=== PATIENT | male | born 1965 | race Hispanic/Latino ===

== ENCOUNTER 2016-11-26 23:27 | Inpatient (IN) | payer MEDICAID ==
[2016-11-27 00:21] LABS: Basophils % (Auto) 0.4 % (0.0-1.8); Eosinophils % (Auto) 0.2 % (0.0-4.3); Hematocrit 44.3 % (35.5-45.6); Hemoglobin 14.7 gm/dl (11.8-15.2); Mean Corpuscular HGB Conc 33 % (32-34); Mean Corpuscular Hemoglobin 32 pg (28-32); Mean Corpuscular Volume 95 fl (84-94); Platelet Count 339 K/mm3 (140-440); Red Blood Count 4.66 M/mm3 (3.65-5.03); Red Cell Distribution Width 13.1 % (13.2-15.2); White Blood Count 15.1 K/mm3 (4.5-11.0)
[2016-11-27 00:44] LABS: Alanine Aminotransferase 23 units/L (7-56); Albumin 3.9 g/dL (3.9-5); Albumin/Globulin Ratio 0.8 %; Alkaline Phosphatase 110 units/L (35-129); Anion Gap 22 mmol/L; BUN/Creatinine Ratio 16.36; Bilirubin,Total 0.6 mg/dL (0.1-1.2); Blood Urea Nitrogen 18 mg/dL (9-20); Calcium 9.1 mg/dL (8.4-10.2); Carbon Dioxide 27 mmol/L (22-30); Chloride 95.6 mmol/L (98-107); Glucose 96 mg/dL (75-100); Lipase 18 units/L (13-60); Potassium 4.6 mmol/L (3.6-5.0); Sodium 140 mmol/L (137-145); Total Protein 8.5 g/dL (6.3-8.2)
--- NOTE | 2016-11-27 06:20 | Emergency Department Report ---
ED Abdominal Pain HPI - General Chief Complaint: Abdominal Pain Stated Complaint: ZE/URINARY RETENTION Time Seen by Provider: 11/27/16 06:16 Source: patient Mode of arrival: Ambulatory Limitations: No Limitations - History of Present Illness Initial Comments: Treatment the patient's family member he doesn't have symptoms that are noted at triage such as abdominal pain. She states that this is entirely wrong. Also denies urinary retention and constipation. She states that he has come to the hospital because he has shaking which is worse than usual. He has a history of tremors and schizophrenia. He is not complaining of any pain. They think he might have had a fever at home but it was unmeasured. Patient himself was incapable of giving any coherent history. This is his baseline. He is found somewhat tremulous. He states that he cannot stop. He can follow simple commands. He'll tell me his name but not a whole lot else. He denies any abdominal discomfort. -: days(s) Severity scale (0 -10): 0 Consistency: constant (shaking) Improves With: nothing Worsens With: nothing Context: other (schizophrenia) Associated Symptoms: constipation (question history is variable) - Related Data Allergies Allergy/AdvReac Type Severity Reaction Status Date / Time No Known Allergies Allergy Verified 11/26/16 23:55 ED Review of Systems ROS: Stated complaint: ZE/URINARY RETENTION Other details as noted in HPI Comment: Unobtainable due to pts medical conditions ED Past Medical Hx - Past Medical History Previous Medical History?: Yes Additional medical history: tremors - Surgical History Past Surgical History?: No - Social History Substance Use Type: None ED Physical Exam - General General appearance: lethargic, other (does have coarse rhythmic shaking but not rigors) - Head Head exam: Present: atraumatic, normocephalic - Eye Eye exam: Present: normal appearance, PERRL, EOMI. Absent: scleral icterus - ENT ENT exam: Present: normal exam, mucous membranes moist - Neck Neck exam: Present: normal inspection. Absent: tenderness, meningismus - Respiratory Respiratory exam: Present: normal lung sounds bilaterally. Absent: respiratory distress - Cardiovascular Cardiovascular Exam: Present: regular rate, normal rhythm. Absent: systolic murmur, diastolic murmur, rubs, gallop - GI/Abdominal GI/Abdominal exam: Present: soft, normal bowel sounds. Absent: distended, tenderness, guarding, rebound, rigid, organomegaly, mass, bruit, pulsatile mass - Rectal Rectal exam: Present: deferred - Extremities Exam Extremities exam: Present: normal inspection - Back Exam Back exam: Present: normal inspection. Absent: CVA tenderness (L), paraspinal tenderness, vertebral tenderness - Neurological Exam Neurological exam: Present: CN II-XII intact, other (tremors). Absent: motor sensory deficit - Psychiatric Psychiatric exam: Present: anxious, flat affect - Skin Skin exam: Present: warm, dry, intact, normal color. Absent: rash ED Course Vital Signs 11/26/16 11/27/16 23:56 07:06 Temperature 97.6 F 98.9 F Pulse Rate 117 H 112 H Respiratory 22 20 Rate Blood Pressure 163/118 Blood Pressure 133/90 [Right] O2 Sat by Pulse 97 96 Oximetry - Reevaluation(s) Reevaluation #1: The patient was given IV fluids and empiric antibiotics. His rectal temp was not elevated. However, his lactic acid level was. I'm suspecting a urological infection. We will get a cath urine. The patient is given ceftriaxone and Dr. Petty will admit him to the hospitalist service. 11/27/16 08:12 ED Medical Decision Making - Lab Data Result diagrams: 11/27/16 00:05 11/27/16 00:05 Laboratory Results - last 24 hr 11/27/16 11/27/16 00:05 00:05 WBC 15.1 H RBC 4.66 Hgb 14.7 Hct 44.3 MCV 95 H MCH 32 MCHC 33 RDW 13.1 L Plt Count 339 Lymph % (Auto) 14.5 [place] % (Auto) 5.2 Eos % (Auto) 0.2 Baso % (Auto) 0.4 Lymph # 2.2 [place] # 0.8 Eos # 0.0 Baso # 0.1 Seg Neutrophils % 79.7 H Seg Neutrophils # 12.0 H Sodium 140 Potassium 4.6 Chloride 95.6 L Carbon Dioxide 27 Anion Gap 22 BUN 18 Creatinine 1.1 Estimated GFR > 60 BUN/Creatinine Ratio 16.36 Glucose 96 Calcium 9.1 Total Bilirubin 0.6 AST 34 ALT 23 Alkaline Phosphatase 110 Total Protein 8.5 H Albumin 3.9 Albumin/Globulin Ratio 0.8 Lipase 18 Critical care attestation.: If time is entered above; I have spent that time in minutes in the direct care of this critically ill patient, excluding procedure time. ED Disposition Clinical Impression: Febrile illness, acute, Elevated lactic acid level, Coarse tremors Disposition: OP ADMITTED IP TO THIS HOSP Is pt being admited?: Yes Does the pt Need Aspirin: Yes Condition: Stable Referrals: EMPERATRIZ LIRA MD [Primary Care Provider] - 3-5 Days Time of Disposition: 08:14
[2016-11-27] MEDS ORDERED: NACL 0.9% 1000 ML 1,000 ML IV ONE (06:36)
[2016-11-27] MEDS ORDERED: ATIVAN IV ONE (06:36)
--- NOTE | 2016-11-27 07:22 | XRay Report ---
AP CHEST: HISTORY: Difficulty in breathing AP view of the chest demonstrates a normal mediastinal and cardiac contour with clear lungs and normal bony and soft tissue structures. No significant change since 03/09/16. IMPRESSION: Unremarkable AP chest.
[2016-11-27 07:33] LABS: Creatine Kinase MB 8.1 ng/mL (0.0-4.0)
[2016-11-27 07:34] LABS: Creatine Kinase 492 units/L (55-170)
[2016-11-27 07:48] LABS: INR 1.07 (0.87-1.13)
[2016-11-27 07:49] LABS: Partial Thromboplastin Time 29.5 Sec. (24.2-36.6)
[2016-11-27] MEDS ORDERED: ROCEPHIN/NS 1 GM/50 ML 1 GM/50 ML BAG IV ONE (08:04)
[2016-11-27] MEDS ORDERED: BABY ASPIRIN PO ONE (08:16)
[2016-11-27] MEDS ORDERED: ZOFRAN IV PRN (08:41)
[2016-11-27] MEDS ORDERED: DULCOLAX PR PRN (08:41)
[2016-11-27] MEDS ORDERED: NORCO 5/325 PO PRN (08:41)
[2016-11-27] MEDS ORDERED: MILK OF MAGNESIA PO PRN (08:41)
[2016-11-27] MEDS ORDERED: TYLENOL PO PRN (08:41)
[2016-11-27] MEDS ORDERED: ATIVAN IV PRN (08:43)
--- NOTE | 2016-11-27 08:45 | History and Physical Report ---
History of Present Illness Date of examination: 11/27/16 Date of admission: 11-27-18 Chief complaint: tremors increase lactic acid History of present illness: Patient 49-year-old originally presented with abdominal pain to the ED. Upon presenting he then told physician that he was therefore his tremors. Patient and family at bedside stated tremors was more been normal. The family member stated that initially the tremors were more than normal but now today about average. Patient also denies abdominal pain. Patient was scheduled to be discharged however had increased lactic acid level. And a fever. It was thought the patient had sepsis and need to be ruled out for sepsis therefore we' ll observe for 24 hours for sepsis syndrome. Past History Past Medical History: other (schizoaffective disorder. Bipolar disorder.). denies: acute VA, arrhythmia, anemia, arthritis, ESRD, heart failure, hepatitis , hyperthyroidism Past Surgical History: No surgical history Social history: lives with family, full code, AND/DNR-allow natural . denies: smoking, alcohol abuse, prescription drug abuse Family history: no significant family history Medications and Allergies Allergies Allergy/AdvReac Type Severity Reaction Status Date / Time No Known Allergies Allergy Verified 11/26/16 23:55 Home Medications Medication Instructions Recorded Confirmed Last Taken Type Unobtainable 11/27/16 11/27/16 Unknown History Active Meds: Active Medications Acetaminophen (Tylenol) 650 mg PO Q4H PRN PRN Reason: Pain MILD(1-3)/Fever >100.5/SANCHEZ Acetaminophen/Hydrocodone Bitart ([place] 5/325) 2 each PO Q6H PRN PRN Reason: Pain, Moderate (4-6) Bisacodyl (Dulcolax) 10 mg MS QDAY PRN PRN Reason: Constipation unrelieved by MOM Enoxaparin Sodium (Lovenox) 40 mg SUB-Q QDAY MARIPOSA Sodium Chloride (Nacl 0.9% 1000 Ml) 1,000 mls @ 125 mls/hr IV DIRECT MARIPOSA Magnesium Hydroxide (Milk Of Magnesia) 30 ml PO Q4H PRN PRN Reason: Constipation Ondansetron HCl (Zofran) 4 mg IV Q8H PRN PRN Reason: N/V unrelieved by Reglan Review of Systems Constitutional: no weight loss, no fever, no sweats, no fatigue, no malaise, no daytime sleepiness, no other Ears, nose, mouth and throat: no deferred, no ear pain, no tinnitis, no decreased hearing, no nasal congestion, no nasal discharge, no sinus pressure, no hoarseness, no sore throat, no vertigo, no pain front of neck, no neck fullness/pressure Respiratory: no excessive sputum, no congestion, no wheezing, no pleurisy, no pain on inspiration, no sleep apnea, no respiratory infections Gastrointestinal: no nausea, no vomiting, no diarrhea, no melena, no early satiety, no heartburn, no excessive gas, no jaundice, no early satiety Genitourinary Male: no genital sores, no impotence Musculoskeletal: leg numbness/tingling, no neck stiffness, no neck pain, no shooting arm pain, no arm numbness/tingling, no low back pain, no shooting leg pain, no redness of joints, no hot joints, no muscle cramps, no atrophy, no limitation of motion, no fractures, no prior amputations Integumentary: no rash, no pruritis, no sores, no wounds, no growths, no lesions , no depigmentation, no acne Neurological: tremors, spasticity, other (a shallow worsening tremors appears to get worse when patient tries to speak or get nervous. They improved significantly with IV Ativan.), no head injury, no transient paralysis, no paralysis, no weakness, no numbness, no tingling, no seizures, no vertigo, no headaches, no migraines, no convulsions, no aphasia, no change in speech, no change in mentation, no gait dysfunction, no sensory deficit, no loss of vision Endocrine: no polyphagia, no polyuria, no proptosis, no deepening of the voice, no palpatations, no high blood sugars Hematologic/Lymphatic: no easy bruising Exam - Constitutional Vitals: Temp Pulse Resp BP Pulse Ox 98.9 F 112 H 20 133/90 96 11/27/16 07:06 11/27/16 07:06 11/27/16 07:06 11/27/16 07:06 11/27/16 07:06 General appearance: Present: no acute distress, well-nourished - EENT Eyes: Present: PERRL ENT: hearing intact, clear oral mucosa - Neck Neck: Present: supple, normal ROM - Respiratory Respiratory effort: normal Respiratory: bilateral: CTA - Cardiovascular Heart Sounds: Present: S1 & S2. Absent: rub, click - Extremities Extremities: pulses symmetrical, No edema Peripheral Pulses: within normal limits - Abdominal General gastrointestinal: Present: soft, non-tender, non-distended, normal bowel sounds Male genitourinary: Present: normal - Integumentary Integumentary: Present: clear, warm, dry - Musculoskeletal Musculoskeletal: gait normal, strength equal bilaterally - Psychiatric Psychiatric: appropriate mood/affect, intact judgment & insight - Neurologic Neurologic: CNII-XII intact, moves all extremities, other (patient with extensive rapid tremors.) Results - Labs CBC & Chem 7: 11/27/16 00:05 11/27/16 00:05 Labs: Laboratory Last Values WBC 15.1 K/mm3 (4.5-11.0) H 11/27/16 00:05 RBC 4.66 M/mm3 (3.65-5.03) 11/27/16 00:05 Hgb 14.7 gm/dl (11.8-15.2) 11/27/16 00:05 Hct 44.3 % (35.5-45.6) 11/27/16 00:05 MCV 95 fl (84-94) H 11/27/16 00:05 MCH 32 pg (28-32) 11/27/16 00:05 MCHC 33 % (32-34) 11/27/16 00:05 RDW 13.1 % (13.2-15.2) L 11/27/16 00:05 Plt Count 339 K/mm3 (140-440) 11/27/16 00:05 Lymph % (Auto) 14.5 % (13.4-35.0) 11/27/16 00:05 [place] % (Auto) 5.2 % (0.0-7.3) 11/27/16 00:05 Eos % (Auto) 0.2 % (0.0-4.3) 11/27/16 00:05 Baso % (Auto) 0.4 % (0.0-1.8) 11/27/16 00:05 Lymph # 2.2 K/mm3 (1.2-5.4) 11/27/16 00:05 [place] # 0.8 K/mm3 (0.0-0.8) 11/27/16 00:05 Eos # 0.0 K/mm3 (0.0-0.4) 11/27/16 00:05 Baso # 0.1 K/mm3 (0.0-0.1) 11/27/16 00:05 Seg Neutrophils % 79.7 % (40.0-70.0) H 11/27/16 00:05 Seg Neutrophils # 12.0 K/mm3 (1.8-7.7) H 11/27/16 00:05 PT 13.8 Sec. (12.2-14.9) 11/27/16 06:58 INR 1.07 (0.87-1.13) 11/27/16 06:58 APTT 29.5 Sec. (24.2-36.6) 11/27/16 06:58 Sodium 140 mmol/L (137-145) 11/27/16 00:05 Potassium 4.6 mmol/L (3.6-5.0) 11/27/16 00:05 Chloride 95.6 mmol/L (98-107) L 11/27/16 00:05 Carbon Dioxide 27 mmol/L (22-30) 11/27/16 00:05 Anion Gap 22 mmol/L 11/27/16 00:05 BUN 18 mg/dL (9-20) 11/27/16 00:05 Creatinine 1.1 mg/dL (0.8-1.5) 11/27/16 00:05 Estimated GFR > 60 ml/min 11/27/16 00:05 BUN/Creatinine Ratio 16.36 % 11/27/16 00:05 Glucose 96 mg/dL (75-100) 11/27/16 00:05 Lactic Acid 2.3 mmol/L (0.7-2.0) H* 11/27/16 06:58 Calcium 9.1 mg/dL (8.4-10.2) 11/27/16 00:05 Total Bilirubin 0.6 mg/dL (0.1-1.2) 11/27/16 00:05 AST 34 units/L (5-40) 11/27/16 00:05 ALT 23 units/L (7-56) 11/27/16 00:05 Alkaline Phosphatase 110 units/L (35-129) 11/27/16 00:05 Total Creatine Kinase 492 units/L (55-170) H 11/27/16 06:58 CK-MB (CK-2) 8.1 ng/mL (0.0-4.0) H 11/27/16 06:58 CK-MB (CK-2) Rel Index 1.6 (0-4) 11/27/16 06:58 Troponin T < 0.010 ng/mL (0.00-0.029) 11/27/16 06:58 Total Protein 8.5 g/dL (6.3-8.2) H 11/27/16 00:05 Albumin 3.9 g/dL (3.9-5) 11/27/16 00:05 Albumin/Globulin Ratio 0.8 % 11/27/16 00:05 Lipase 18 units/L (13-60) 11/27/16 00:05 Assessment and Plan Advance Directives: Yes VTE prophylaxis?: Chemical Plan of care discussed with patient/family: Yes - Patient Problems (1) Coarse tremors Current Visit: Yes Status: Acute Plan to address problem: A short course tremors exact etiology unknown. Family states patient had the tremors for many years. But became exacerbated last night. Most likely secondary to stress versus infection versus fever. Now back to baseline. (2) Elevated lactic acid level Current Visit: Yes Status: Acute Plan to address problem: Elevated lactic acid level no evidence of infection at this particular time. We 'll follow lab data if has infection we'll treat accordingly. For now would treating empirically for possible infection. No further episodes of fever at this point. (3) Febrile illness, acute Current Visit: Yes Status: Acute Plan to address problem: Even Lovenox sepsis. Treating empirically Rocephin we'll check blood culture data chest x-ray data. And blood culture data.
--- NOTE | 2016-11-27 08:55 | Admit Criteria Form ---
Admission Criteria Documentation: FEBRILE ILLNESS, WITHOUT FOCAL INFECTION Clinical Indications for Admission to Inpatient Care (Place 'X' for any and all applicable criteria): Admission is indicated for ANY ONE of the following (1)(2)(3): [ ] I. Bacteremia [ ]II. Suspected or identified specific infection requiring hospitalization (eg, meningitis, endocarditis) [ ]III. Hemodynamic instability [ ]IV. Altered mental status [ ]V. Failure or unavailability of outpatient antimicrobial treatment [ ]. Hypoxemia [ ]VII. Seizures [ ]VIII. High-risk febrile neutropenia [ ]IX. Need for parenteral antibiotic in patient who is likely to abuse vascular access device (eg, injection drug user) [A](7) [ ]X. Temperature greater than 104.9 degrees F (40.5 degrees C) (oral) [X ]XI. Inpatient admission required rather than observation care because of ANY ONE of the following: [ ]a) Specific infection identified that is too severe for outpatient treatment or observation care trial [ ]b) Metabolic disorder (eg, hypoglycemia, hyperglycemia, metabolic acidosis) that is severe or persistent [ ]c) Temperature greater than 103.1 degrees F (39.5 degrees C) ( oral) that is not responsive to observation care treatment [ ]d) IV fluid to replace significant ongoing (eg, for over 24 hours) losses (> 3 L/m2 per day) [ ]e) Supplemental oxygen or respiratory treatments for over 24 hours that is performable only in acute inpatient setting [ ]f) Parenteral nutrition regimen need that must be implemented on inpatient basis [ ]g) Strict or protective (eg, laminar flow) isolation [X ]h) Other condition, treatment or monitoring requiring inpatient admission Extended stay beyond goal length of stay may be needed for(1)(3) [ ]a) Sepsis or septic shock(22) [ ]b) Positive blood cultures [ ]c) Insufficient oral intake [ ]d) High-risk febrile neutropenia(29)(30) [ ]e) Continued fever and clinical instability [ ]f) Clinically active comorbid illness (e.g,heart failure, renal failure , diabetes) The original [facility] content created by [facility] has been revised. The portions of the content which have been revised are identified through the use of italic text or in bold, and [facility] has neither reviewed nor approved the modified material. All other unmodified content is copyright [facility]. Please see references footnoted in the original [facility] edition 2016 Admission Criteria Met: Yes
[2016-11-27 09:07] LABS: Urine Drugs of Abuse Note Disclamer
[2016-11-27 10:00] LABS: Bilirubin,Urine SM (Negative); Blood,Urine NEG (Negative); Ketones,Urine 20 mg/dL (Negative); Leukocyte Esterase,Urine NEG (Negative); Mucus,Urine 2+ /HPF; Nitrite,Urine NEG (Negative)
[2016-11-27] MEDS: LOVENOX SUB-Q SCH (10:00)
[2016-11-27] MEDS: ROCEPHIN/NS 1 GM/50 ML 1 GM/50 ML BAG IV SCH (11:24)
[2016-11-27] MEDS: NACL 0.9% 1000 ML 1,000 ML IV SCH (19:01)
[2016-11-28] MEDS: NACL 0.9% 1000 ML 1,000 ML IV SCH (09:11)
[2016-11-28] MEDS: LOVENOX SUB-Q SCH (09:12)
[2016-11-28] MEDS: ROCEPHIN/NS 1 GM/50 ML 1 GM/50 ML BAG IV SCH (09:13)
[2016-11-28 09:44] VITALS: BP 132/83
[2016-11-28 10:08] LABS: Basophils % (Auto) 0.4 % (0.0-1.8); Eosinophils % (Auto) 0.9 % (0.0-4.3); Hematocrit 36.9 % (35.5-45.6); Hemoglobin 12.8 gm/dl (11.8-15.2); Mean Corpuscular HGB Conc 35 % (32-34); Mean Corpuscular Hemoglobin 32 pg (28-32); Mean Corpuscular Volume 93 fl (84-94); Platelet Count 243 K/mm3 (140-440); Red Blood Count 3.97 M/mm3 (3.65-5.03); Red Cell Distribution Width 12.8 % (13.2-15.2); White Blood Count 8.8 K/mm3 (4.5-11.0)
--- NOTE | 2016-11-28 10:51 | Discharge Summary ---
Providers - Providers Date of Admission: 11/27/16 08:51 Date of discharge: 11/28/16 Attending physician: CHETAN SEO MD Primary care physician: EMPERATRIZ LIRA Hospitalization Condition: Stable Disposition: DC/TX HOME UNDER HOME HEALTH Time spent for discharge: 35 mins Exam - Constitutional Vitals: Temp Pulse Resp BP Pulse Ox 98.2 F 105 H 20 132/83 95 11/28/16 07:50 11/28/16 07:50 11/28/16 07:50 11/28/16 07:50 11/28/16 07:50 Plan Activity: advance as tolerated, fall precautions Diet: regular, advance as tolerated Additional Instructions: continue current home meds. Follow with primary neurologist. Follow up with: EMPERATRIZ LIRA MD [Primary Care Provider] - 3-5 Days
[2016-11-28] MEDS ORDERED: FLUARIX QUAD 2016-2017(36 MOS+) IM ONE (12:00)
== END 2016-11-28 15:13 | disposition home health service (06) | DRG 92 ==
LOC: ED 23:27 → 3A 11-27 08:51
PROVIDERS: ADMIT Internal Medicine; ATTEND Internal Medicine
DX: G25.2 Other specified forms of tremor (principal); E87.2 Acidosis; F25.9 Schizoaffective disorder, unspecified; F31.9 Bipolar disorder, unspecified; R50.9 Fever, unspecified
CPT/HCPCS: 36415; 71010; 80053; 80307; 81001; 82140; 82550; 82553; 83690; 84484; 85025; 85610; 85730; 87040; 87086; 90686; 93005; 93010; 96361; 96365; 96372; 96375; J0696; J1650; J2060; J7030